=== PATIENT | female | born 1975 | race Caucasian/White ===

== ENCOUNTER → 2018-08-16 13:23 | Outpatient (CLI) | payer MEDICAID, SELFPAY ==
[2018-08-20 10:47] LABS: HPV Reflexed? NOT INDICATED
== END ==
PROVIDERS: Visit Provider Obstetrics & Gynecology
DX: Z12.4 Encounter for screening for malignant neoplasm of cervix (principal)
CPT/HCPCS: 88175; G0145

== ENCOUNTER 2023-07-11 12:06 | Emergency (ER) | payer MEDICAID, SELFPAY ==
[2023-07-11 12:07] VITALS: BP 196/113; PULSE 115; RESP 16; TEMP 36.3; O2SAT 99; BMI 40.6
[2023-07-11 13:25] LABS: Absolute Lymphocyte Count 2.53 X10^3/uL (0.83-4.51); Absolute Neutrophil Count 5.9 X10^3/uL (2.0-7.7); Basophil# 0.07 X10^3/uL; Basophil% 0.7 % (0-1); Eosinophil# 0.18 X10^3/uL; Eosinophils% 1.9 % (0-5); Hematocrit 33.7 % (37-47); Hemoglobin 10.6 g/dL (12.0-15.0); Lymphocyte # 2.53 X10^3/ul (0.83-4.51); Mean Corp Hgb Conc 31.5 g/dL (32-36); Mean Corpuscular Hgb 24.5 pg (27.0-32.0); Mean Corpuscular Volume 77.8 fL (81-99); Mean Platelet Vol. 9.2 fl (6.2-12.0); Monocyte# 0.69 X10^3/uL; Monocyte% 7.4 % (0-10); NRBC Flagged by Analyzer 0 % (0-5); Neutrophil # 5.88 X10^3/uL (2.7-7.7); Neutrophil % 62.7 % (47-70); Platelet Count 345 K/mm3 (150-450); RBC Distribution Width CV 14.9 % (11.6-14.6); RBC Distribution Width SD 41.3 fl (35.1-43.9); Red Blood Count 4.33 M/mm3 (4.2-5.4); White Blood Count 9.4 K/mm3 (4.4-11.0)
[2023-07-11 13:32] LABS: Internal QC Validated? YES +Cl - CLEAR BKGD; Pregnancy, Serum, hCG Quali. NEGATIVE Negative
[2023-07-11 13:41] LABS: ALB/GLOB Ratio 0.8 RATIO (0.9-2.4); AST(SGOT) 16 U/L (15-37); Alanine Aminotransfer ALT/SGPT 24 U/L (13-56); Albumin, Serum 3.6 g/dL (3.2-5.0); Alkaline Phosphatase 104 U/L (45-117); Anion Gap 6 (5-15); BUN 14 mg/dL (7-18); BUN/Creat Ratio 14.9 RATIO (10-20); Chloride 105 mmol/L (98-107); Creatinine, Serum 0.94 mg/dL (0.55-1.02); EST Glomerular Filtration Rate 68 mL/min (>60); Est Glom Filt Rate - Afr Amer 82 mL/min (>60); Estimated Creatinine Clearance 110.43 ml/min; Globulin 4.4 g/dL (2.2-4.2); Glucose 137 mg/dL (74-106); Potassium 3.9 mmol/L (3.5-5.1); Sodium Level 138 mmol/L (136-145)
[2023-07-11 15:17] LABS: Mucous, Urine 0 SEEN /hpf (<or=2+)
[2023-07-11 15:23] LABS: Color, Urine Yellow (Yellow); Glucose, Dipstick Normal (Normal); Ketone-Dipstick Negative (Negative); Leukocyte Esterase-Dipstick 500 /ul (Negative); Nitrite-Dipstick Negative (Negative); Occult Blood-Urine 10 /ul (Negative); Protein-Dipstick 30 mg/dl (Negative); Urine Bilirubin Dipstick Negative (Negative); Urine Clarity Sl. Cloudy (Clear); Urine Urobilinogen 1 mg/dl (Normal)
--- NOTE | 2023-07-11 15:23 | CT_ITS ---
EXAM: CT ABDOMEN AND PELVIS WITH INTRAVENOUS CONTRAST CLINICAL INDICATION: Abdominal pain, constipation TECHNIQUE: Helically acquired images were obtained of the abdomen and pelvis with intravenous contrast. This CT exam was performed using one or more of the following dose reduction techniques: automated exposure control, adjustment of the mA and/or kV according to patient size, and/or use of iterative reconstruction technique. CONTRAST: IV 100mL Isovue-370 RADIATION DOSE: CTDIvol = 15.29 mGy, DLP = 1274.12 mGy-cm COMPARISON: No relevant prior studies available. FINDINGS: LIMITATIONS: Limited by patient''s size which decreases resolution and causes artifact. LOWER THORAX: Unremarkable. Lung bases are clear. No cardiomegaly. No significant pericardial effusion. ABDOMEN: LIVER: Fatty liver with hepatomegaly. GALLBLADDER AND BILE DUCTS: Absent gallbladder. No intra- or extrahepatic biliary ductal dilation. PANCREAS: Unremarkable. No focal cystic or solid mass. SPLEEN: Unremarkable. Normal size without focal cystic or solid mass. ADRENALS: Unremarkable. No nodules. KIDNEYS AND URETERS: Unremarkable. Normal renal size and position. No hydronephrosis. STOMACH AND BOWEL: Evaluation of the GI tract is limited by absence of oral contrast. Cannot exclude stomach wall thickening. No dilated loops of bowel or evidence for obstruction. Cannot exclude segmental thickening of the munoz of the small or large bowel. Cannot exclude enteritis or colitis. Moderate diffuse fecal retention. PELVIS: APPENDIX: No evidence of acute appendicitis. BLADDER: Unremarkable. REPRODUCTIVE: Normal uterus. No mass. ABDOMEN and PELVIS: INTRAPERITONEAL SPACE: Unremarkable. No ascites or other fluid collection. No free air. BONES/JOINTS: Unremarkable. No suspicious lytic or blastic abnormality. SOFT TISSUES: Unremarkable. No discrete abdominal or pelvic wall hernia. VASCULATURE: Unremarkable. Abdominal aorta is non-dilated. LYMPH NODES: Unremarkable. No enlarged lymph nodes. CT/Abdomen/Pelvis W IV Cont ONLY IMPRESSION: 1. Limited as above. 2. No definite acute or significant abnormality seen. Electronically Signed: Dane Waddell MD at 16:31 EST ,
--- NOTE | 2023-07-11 15:23 | ED.VIS.GI ---
HPI HPI - GI History of Present Illness Chief Complaint: Abd Pain Informant: patient Narrative Narrative: Patient presents with constipation and abdominal pain. Patient was seen by her doctor here referred to make sure there was not a blockage or other acute issue. Patient states she has had lifelong problems with constipation and abdominal discomfort. She has significant reflux and is on 2 meds. She does note that she will oftentimes have a bowel movement near her menstrual cycle and then after that she has trouble going. Her last but good bowel movement and her menstrual cycle were both about 2 weeks ago. She is starting menopause and has irregularity of cycles. Only prior abdominal surgery is cholecystectomy. Patient states she has tried fibers and fluids. She has tried laxatives like Dulcolax but they never work for her. Her only current medication is MiraLAX. She states her stool is soft but it still does not seem to go enough. She just feels bloated and full. She has had EGDs and colonoscopies. She has seen 2 different rn first assist and is about to see a third. Her doctor talked to her about Linzess but would like a rn first assist to prescribe it. She has not taken anything other than MiraLAX in the last 2 weeks to try to get a bowel movement. Patient also states she has chronic hemorrhoids. She has has had some bleeding occasionally bright red and occasionally dark red recently. [facility] Medical History GERD (gastroesophageal reflux disease) Home Medications famotidine 20 mg tablet 20 mg PO DAILY 07/11/23 [History Last Taken Unknown] ondansetron 4 mg disintegrating tablet 4 mg PO Q8H PRN PRN Nausea #10 tabs 07/11/23 [Rx Last Taken Unknown] pantoprazole 40 mg tablet,delayed release 40 mg PO DAILY 07/11/23 [History Last Taken Unknown] Allergy/AdvReac Type Severity Reaction Status Date / Time vancomycin Allergy Intermediate Hives Verified 07/11/23 12:09 venom-honey bee Allergy Anaphylaxis Verified 02/24/15 18:10 [bee venom (honey bee)] Surgical History Hx of cholecystectomy Social History Smoking Status: Current every day smoker tobacco type: cigarettes ROS ROS ED ROS Narrative A complete review of systems was performed and is negative except as documented in the history of present illness. Some specific details below. Constitutional: No recent fevers or chills. EYE: No visual complaints or pain. ENT: No difficulty swallowing. No swelling. No pain. She does have chronic GERD but it is not a major issue at this time. CV: No chest pain or palpitations. Respiratory: No dyspnea. No hemoptysis. No difficulty taking breaths. GI: Please see history of present illness. : No frequency dysuria or hematuria. Musculoskeletal: No recent trauma. No pains. Skin: No rash. Nondiaphoretic. Neuro: No weakness or numbness. Endocrine: No polyuria or polydipsia. EXAM Physical Exam Narrative Exam Narrative: CONSTITUTIONAL: Patient is nontoxic in appearance. The patient looks comfortable. HEENT: No notable trauma. Mucous membranes moist. EYES: No conjunctival injection. No icterus or pallor. CARDIOVASCULAR: Regular rate. Regular rhythm. No notable murmur. No JVD. RESPIRATORY: No respiratory distress. Breathing is unlabored. No wheezes. No rhonchi. No rales. No pain with a deep breath. GASTROINTESTINAL: Not distended. Bowel sounds are normal to slightly increased. No tenderness. No guarding. No rebound. No palpable mass. No bruit. Her abdomen is actually quite benign. GENITOURINARY: No tenderness over the bladder. No CVA tenderness. MUSCULOSKELETAL: Atraumatic. No peripheral edema. No tenderness NEUROLOGICAL: Patient is alert and appropriate. No focal deficit noted. SKIN: No noted rashes. No diaphoresis. PSYCHIATRIC: Patient is calm. Mood is appropriate. Const Vital Signs: 07/11/23 12:07 Temperature 97.3 F L Temperature Source Temporal Pulse Rate 115 H Respiratory Rate 16 Blood Pressure 196/113 H Blood Pressure Mean 140 Pulse Ox 99 Oxygen Delivery Method Room Air MDM MDM MDM Narrative Medical decision making narrative: Patient CBC shows what appears to be chronic anemia from the indices. White count and platelets are normal. Patient's electrolytes show no marked abnormalities. Mild elevation of glucose at 137 that can be followed up. Patient's liver function test are overall normal. Patient's serum is negative. Patient's urinalysis shows multiple changes but also has a large number of squamous epithelial cells. She has no urinary symptoms. This will be sent for culture. My independent interpretation of her CT shows some increased stool but no acute obstruction. Similar reading by radiology. We will send the patient home with magnesium citrate. Although she is constipated she has been on MiraLAX but nothing to really stimulate initial bowel motion. She will follow-up with her physician who is also getting her into see a gastroenterology. Lab Data Attestation: I reviewed the patient's lab results. Labs: Laboratory Results - last 24 hr 07/11/23 07/11/23 13:05 15:10 WBC 9.4 RBC 4.33 Hgb 10.6 L Hct 33.7 L MCV 77.8 L MCH 24.5 L MCHC 31.5 L RDW Std Deviation 41.3 RDW Coeff of [place] 14.9 H Plt Count 345 MPV 9.2 Immature Gran % (Auto) 0.300 Neut % (Auto) 62.7 Lymph % (Auto) 27.0 [place] % (Auto) 7.4 Eos % (Auto) 1.9 Baso % (Auto) 0.7 Absolute Neuts (auto) 5.9 Absolute Lymphs (auto) 2.53 Nucleated RBC % 0 Sodium 138 Potassium 3.9 Chloride 105 Carbon Dioxide 27.0 Anion Gap 6 BUN 14 Creatinine 0.94 Estim Creat Clear Calc 110.43 Est GFR (MDRD) Af Amer 82 Est GFR (MDRD) Non-Af 68 BUN/Creatinine Ratio 14.9 Glucose 137 H Calcium 9.0 Total Bilirubin 0.40 AST 16 ALT 24 Alkaline Phosphatase 104 Total Protein 8.0 Albumin 3.6 Globulin 4.4 H Albumin/Globulin Ratio 0.8 L Serum , Qual NEGATIVE Urine Color Yellow Urine Clarity Sl. Cloudy Urine pH 7.0 Ur Specific Hematite 1.010 Urine Protein 30 H Urine Glucose (UA) Normal Urine Ketones Negative Urine Occult Blood 10 H Urine Nitrite Negative Urine Bilirubin Negative Urine Urobilinogen 1 H Ur Leukocyte Esterase 500 H Urine RBC 0-5 SEEN Urine WBC 10-25 SEEN Ur Squamous Epith Cells 10-25 SEEN Urine Bacteria 3+ Urine Mucus 0 SEEN Radiography Diagnostic Testing: Clinical Impression(s) from Imaging Studies Abdomen/Pelvis CT 07/11/23 15:23 IMPRESSION: 1. Limited as above. 2. No definite acute or significant abnormality seen. Electronically Signed: Dane Waddell MD at 16:31 EST , Discharge Plan Triage Chief Complaint: Abd Pain ED Provider: Rosales Thompson Dx/Rx/DC Orders Clinical Impression: Abdominal pain, Nausea, Constipation Instructions: Abdominal Pain, ED Constipation (Adult) Prescriptions: New ondansetron [ondansetron] 4 mg tablet,disintegrating 4 mg PO Q8H PRN PRN (Reason: Nausea) Qty: 10 0RF No Action famotidine 20 mg tablet 20 mg PO DAILY Patient Comments: TAKE 1 TABLET BY MOUTH EVERY DAY pantoprazole 40 mg tablet,delayed release (DR/EC) 40 mg PO DAILY Patient Comments: TAKE 1 TABLET BY MOUTH EVERY DAY Primary Care Provider: Theo Alexander Referrals: Theo Alexander MD [Primary Care Provider] - 3-5 Days Disposition Disposition: Home, Self Care
--- OUTSIDE RECORDS SUMMARY | 2023-07-11 15:29 | XMS RPT_ITS | CCD ---
Author Name Unknown Address [address] [place] [address] Organization [facility] Care Team Providers Care Network Support Technician Name Role Phone Hui Alexander MD Primary Care Provider [phone] HUI ALEXANDER Primary Care Unavailable HUI ALEXANDER Referring Unavailable HUI ALEXANDER Attending Unavailable HUI ALEXANDER Primary Care Unavailable HUI ALEXANDER Primary Care Unavailable HUI ALEXANDER Primary Care Unavailable HUI ALEXANDER Referring Unavailable HUI ALEXANDER Primary Care Unavailable HUI ALEXANDER Primary Care Unavailable HUI ALEXANDER Referring Unavailable Allergies Allergy Classification Reported Allergen(s) Allergy Type Date of Onset Reaction(s) Facility (20 sources) Vancomycin; Translations: [VANCOMYCIN] Drug Allergy 7 Other: See Comments [facility] Work Phone: (20 sources) Bees; Translations: [BEES] Allergy to substance 0 Anaphylaxis [facility] Work Phone: (20 sources) environmental [Other] Propensity to adverse reactions 0 Intolerance [facility] Work Phone: (1 source) Seasonal allergy Allergy to substance 0 Intolerance [facility] (1 source) OTHER; Translations: [OTHER] Propensity to adverse reactions (disorder) 0 [facility] Repository Medications Current Medications Medication Drug Class(es) Dates Sig (Normalized) Sig (Original) famotidine 20 mg oral tablet (20 sources) Histamine-2 Receptor Antagonist Start: 08-09-2022 End: 06-14-2023 take 1 tablet by mouth once daily famotidine (PEPCID) 20 mg tablet Indications: Functional dyspepsia Take 1 tablet by mouth once daily. 90 tablet 1 12/16/2022 06/14/2023 Active Completed/Discontinued Medications Medication Drug Class(es) Dates Sig (Normalized) Sig (Original) acetaminophen 500 mg oral tablet (1 source) Start: 05-27-2022 End: 05-27-2022 acetaminophen 1,000 mg tab(s) (TYLENOL) betamethasone 0.5 mg/ml / clotrimazole 10 mg/ml topical cream (6 sources) Azole Antifungal, Corticosteroid Start: 03-11-2022 End: 12-16-2022 clotrimazole-betam ethasone (LOTRISONE) cream Apply to affected area twice daily. 45 g 0 03/11/2022 12/16/2022 Discontinued (Other) Problems Active Problems Problem Classification Problem Date Documented Da te Episodic/Chronic Abdominal pain (1 source) Burning epigastric pain; Translations: [Epigastric pain] Episodic Deficiency and other anemia (1 source) Anemia; Translations: [Anemia, unspecified] 01-04-2023 Episodic Disorders of teeth and jaw (1 source) Jaw pain; Translations: [Jaw pain] 05-20-2023 Episodic Esophageal disorders (1 source) Gastroesophageal reflux disease without esophagitis; Translations: [Gastro-esophageal reflux disease without esophagitis] Chronic Influenza (1 source) Influenza-like illness; Translations: [Influenza due to unidentified influenza virus with other respiratory manifestations] Episodic Malaise and fatigue (1 source) Fatigue; Translations: [Other fatigue] 12-16-2022 Episodic Menstrual disorders (1 source) Missed period; Translations: [Irregular menstruation, unspecified] Chronic Nausea and vomiting (1 source) Nausea; Translations: [Nausea] Episodic Other and unspecified benign neoplasm (1 source) History of polyp of colon; Translations: [Personal history of colonic polyps] Episodic Other disorders of stomach and duodenum (2 sources) Nonulcer dyspepsia; Translations: [Functional dyspepsia] Episodic Other ear and sense organ disorders (1 source) Otalgia, right ear; Translations: [Otalgia, unspecified] 05-20-2023 Episodic Other gastrointestinal disorders (4 sources) Abdominal bloating; Translations: [Abdominal distension (gaseous)] Episodic Other gastrointestinal disorders (3 sources) Constipation; Translations: [Constipation, unspecified] Episodic Other gastrointestinal disorders (2 sources) Dysphagia; Translations: [Dysphagia, unspecified] Episodic Other gastrointestinal disorders (1 source) Chronic constipation; Translations: [Other constipation] 12-16-2022 Episodic Other skin disorders (1 source) Eruption; Translations: [Rash and other nonspecific skin eruption] Episodic Other upper respiratory infections (2 sources) Sore throat symptom; Translations: [Acute pharyngitis, unspecified] Episodic Residual codes; unclassified (3 sources) Obstructive sleep apnea syndrome; Translations: [Obstructive sleep apnea (adult) (pediatric)] 12-17-2022 Chronic Residual codes; unclassified (1 source) Obstructive sleep apnea (adult) (pediatric); Translations: [CARMENCITA (obstructive sleep apnea)] Onset: 3 Chronic Residual codes; unclassified (4 sources) Early satiety; Translations: [Early satiety] Episodic Residual codes; unclassified (2 sources) Family history of polyp of colon; Translations: [Family history of colonic polyps] Episodic Past or Other Problems Problem Classification Problem Date Documented Da te Episodic/Chronic Allergic reactions (20 sources) Allergy to bee venom; Translations: [Bee allergy status] Onset: 01-10-2018 01-10-2018 Episodic Deficiency and other anemia (1 source) Anemia, unspecified; Translations: [Anemia, unspecified type] Onset: 01-03-2023 Episodic Immunizations and screening for infectious disease (3 sources) Viral screening status; Translations: [Encounter for screening for other viral diseases] Onset: 12-23-2022 12-16-2022 Episodic Other connective tissue disease (20 sources) Plantar fascial fibromatosis; Translations: [Plantar fascial fibromatosis] Onset: 09-23-2009 09-23-2009 Episodic Other gastrointestinal disorders (1 source) Other constipation; Translations: [Chronic constipation] Onset: 12-23-2022 Episodic Other screening for suspected conditions (not mental disorders or infectious disease) (10 sources) Patient encounter status; Translations: [Encounter for screening mammogram for malignant neoplasm of breast] Onset: 12-23-2022 Episodic Results Test Name Value Interpretation Reference Range Facil ity Vital Signs Date Time Vital Sign Value Performing Clinician Lisandro beckham 05-20-2023 16:26-0500 Body temperature 97.39 [degF] Shari Sewell APRN.BUN ICER Work Phone: [facility] 05-20-2023 16:26-0500 Body weight 131.18 kg Shari Melodie SENIOR LINUX UNIX ENGINEER.B[employer] ICER Work Phone: [facility] 05-20-2023 16:26-0500 Diastolic blood pressure 86 mm[Hg] Shari Melodie SENIOR LINUX UNIX ENGINEER.B[employer] IC[employer] Work Phone: [facility] 05-20-2023 16:26-0500 Heart rate 96 /min Shari Melodie SENIOR LINUX UNIX ENGINEER.B[employer] ICER Work Phone: [facility] 05-20-2023 16:26-0500 Respiratory rate 18 /min Shari Melodie SENIOR LINUX UNIX ENGINEER.B[employer] ICER Work Phone: [facility] 05-20-2023 16:26-0500 SaO2% (BldA) [Mass fraction] 98 % Shari Barkerk SENIOR LINUX UNIX ENGINEER.B[employer] ICER Work Phone: [facility] 05-20-2023 16:26-0500 Systolic blood pressure 134 mm[Hg] Shari Melodie SENIOR LINUX UNIX ENGINEER.B[employer] ICER Work Phone: [facility] 12-16-2022 14:22-0400 Body height 175.3 cm Hui Alexander MD Work Phone: [facility] 12-16-2022 14:22-0400 Body weight 133.63 kg Hui Alexander MD Work Phone: [facility] 12-16-2022 14:22-0400 Diastolic blood pressure 74 mm[Hg] Hui Alexander MD Work Phone: [facility] 12-16-2022 14:22-0400 Heart rate 98 /min Hui Alexander MD Work Phone: [facility] 12-16-2022 14:22-0400 SaO2% (BldA) [Mass fraction] 97 % Hui Alexander MD Work Phone: [facility] 12-16-2022 14:22-0400 Systolic blood pressure 100 mm[Hg] Hui Alexander MD Work Phone: [facility] 05-27-2022 14:49-0500 Body temperature 100.6 [degF] Marcelino Tineo SENIOR LINUX UNIX ENGINEER.B[employer] ICER Work Phone: [facility] 05-27-2022 14:49-0500 Body weight 135.99 kg Marcelino Noman SENIOR LINUX UNIX ENGINEER.B[employer] ICER Work Phone: [facility] 05-27-2022 14:49-0500 Diastolic blood pressure 84 mm[Hg] Marcelino Noman SENIOR LINUX UNIX ENGINEER.B[employer] ICER Work Phone: [facility] 05-27-2022 14:49-0500 Heart rate 114 /min Marcelino Noman SENIOR LINUX UNIX ENGINEER.BUN ICER Work Phone: [facility] 05-27-2022 14:49-0500 Respiratory rate 18 /min Marcelino Noman SENIOR LINUX UNIX ENGINEER.B[employer] ICER Work Phone: [facility] 05-27-2022 14:49-0500 SaO2% (BldA) [Mass fraction] 98 % Marcelino Noman SENIOR LINUX UNIX ENGINEER.BUN ICER Work Phone: [facility] 05-27-2022 14:49-0500 Systolic blood pressure 138 mm[Hg] Marcelino Noman SENIOR LINUX UNIX ENGINEER.B[employer] ICER Work Phone: [facility] 03-29-2022 18:59-0400 Body temperature 98.29 [degF] Eduarda Praisler-Wood SENIOR LINUX UNIX ENGINEER.BUN ICER Work Phone: [facility] 03-29-2022 18:59-0400 Body weight 135.17 kg Eduarda Praisler-Wood SENIOR LINUX UNIX ENGINEER.BUN ICER Work Phone: [facility] 03-29-2022 18:59-0400 Diastolic blood pressure 90 mm[Hg] Eduarda Praisler-Wood SENIOR LINUX UNIX ENGINEER.BUN ICER Work Phone: [facility] 03-29-2022 18:59-0400 Heart rate 110 /min Eduarda Praisler-Wood SENIOR LINUX UNIX ENGINEER.BUN ICER Work Phone: [facility] 03-29-2022 18:59-0400 Respiratory rate 18 /min Eduarda Praisler-Wood SENIOR LINUX UNIX ENGINEER.BUN ICER Work Phone: [facility] 03-29-2022 18:59-0400 SaO2% (BldA) [Mass fraction] 97 % Eduarda Praisler-Wood SENIOR LINUX UNIX ENGINEER.BUN ICER Work Phone: [facility] 03-29-2022 18:59-0400 Systolic blood pressure 138 mm[Hg] Eduarda Praisler-Wood SENIOR LINUX UNIX ENGINEER.BUN ICER Work Phone: [facility] 03-11-2022 13:34-0400 Body temperature 98.2 [degF] Gilberto Rudolph SENIOR LINUX UNIX ENGINEER.BUN ICER Work Phone: [facility] 03-11-2022 13:34-0400 Body weight 135.26 kg Gilbreto Rudolph SENIOR LINUX UNIX ENGINEER.BUN ICER Work Phone: [facility] 03-11-2022 13:34-0400 Diastolic blood pressure 80 mm[Hg] Gilberto Rudolph SENIOR LINUX UNIX ENGINEER.BUN ICER Work Phone: [facility] 03-11-2022 13:34-0400 Heart rate 106 /min Gilberto Rudolph SENIOR LINUX UNIX ENGINEER.BUN ICER Work Phone: [facility] 03-11-2022 13:34-0400 Respiratory rate 16 /min Gilberto Rudolph SENIOR LINUX UNIX ENGINEER.BUN ICER Work Phone: [facility] 03-11-2022 13:34-0400 SaO2% (BldA) [Mass fraction] 96 % Gilberto Rudolph SENIOR LINUX UNIX ENGINEER.BUN ICER Work Phone: [facility] 03-11-2022 13:34-0400 Systolic blood pressure 144 mm[Hg] Gilberto Rudolph SENIOR LINUX UNIX ENGINEER.BUN ICER Work Phone: [facility] 01-27-2022 09:21-0400 Body height 175.3 cm Keri Kuhn MD Work Phone: [facility] 01-27-2022 09:21-0400 Body weight 135.17 kg Keri Kuhn MD Work Phone: [facility] 01-27-2022 09:21-0400 Diastolic blood pressure 84 mm[Hg] Keri Kuhn MD Work Phone: [facility] 01-27-2022 09:21-0400 Systolic blood pressure 138 mm[Hg] Keri Kuhn MD Work Phone: [facility] 12-30-2021 09:15-0400 Diastolic blood pressure 56 mm[Hg] Jordan Odom MD Work Phone: [facility] 12-30-2021 09:15-0400 SaO2% (BldA) [Mass fraction] 93 % Jordan Odom MD Work Phone: [facility] 12-30-2021 09:15-0400 Systolic blood pressure 109 mm[Hg] Jordan Odom MD Work Phone: [facility] 12-30-2021 08:44-0400 Body temperature 96.8 [degF] Jordan Odom MD Work Phone: [facility] 12-30-2021 07:08-0400 Body height 177.8 cm Jordan Odom MD Work Phone: [facility] 12-30-2021 07:08-0400 Body weight 132.9 kg Jordan Odom MD Work Phone: [facility] 12-30-2021 07:08-0400 Heart rate 94 /min Jordan Odom MD Work Phone: [facility] 12-30-2021 07:08-0400 Respiratory rate 18 /min Jordan Odom MD Work Phone: [facility] 08-31-2021 13:09-0400 Body height 175 cm Francesca Hurst SENIOR LINUX UNIX ENGINEER.BUN ICER Work Phone: [facility] 08-31-2021 13:09-0400 Body weight 132.9 kg Francesca Hurst SENIOR LINUX UNIX ENGINEER.BUN ICER Work Phone: [facility] 08-31-2021 13:09-0400 Diastolic blood pressure 78 mm[Hg] Francesca Hurst SENIOR LINUX UNIX ENGINEER.BUN ICER Work Phone: [facility] 08-31-2021 13:09-0400 Heart rate 97 /min Francesca Hurst SENIOR LINUX UNIX ENGINEER.BUN ICER Work Phone: [facility] 08-31-2021 13:09-0400 SaO2% (BldA) [Mass fraction] 97 % Francesca Hurst SENIOR LINUX UNIX ENGINEER.BUN ICER Work Phone: [facility] 08-31-2021 13:09-0400 Systolic blood pressure 124 mm[Hg] Francesca Hurst SENIOR LINUX UNIX ENGINEER.BUN ICER Work Phone: [facility] Encounters Encounter Date Encounter Type Care Provider Facility Start: 05-20-2023 End: 05-20-2023 ambulatory HUI ALEXANDER Facility:[facility] Start: 05-20-2023 End: 05-20-2023 Patient encounter procedure Shari Sewell SENIOR LINUX UNIX ENGINEER.BUN ICER Work Phone: [facility] Procedures Date Procedure Procedure Detail Performing Clinician Start: 05-20-2023 STREP A MOLECULAR (POC) Shari Sewell SENIOR LINUX UNIX ENGINEER. BUN ICER Work Phone: Start: 12-23-2022 Lipid 1996 panel - Serum or Plasma Nick Carpenter Jr., MD Work Phone: Start: 05-27-2022 COVID WITH FLUA+B, ROUTINE Marcelino Tineo SENIOR LINUX UNIX ENGINEER.B[employer] ICER Work Phone: Start: 03-29-2022 STREP A MOLECULAR (POC) Eduarda barrow SENIOR LINUX UNIX ENGINEER.BUN ICER Work Phone: Start: 03-11-2022 RIRI SCREENING W RUFUS Kuhn MD Work Phone: Start: 03-11-2022 Mammography Gilberto Rudolph SENIOR LINUX UNIX ENGINEER.BUN ICER Work Phone: Start: 12-30-2021 Colonoscopy flx dx w/collj spec when pfrmd Francesca Hurst SENIOR LINUX UNIX ENGINEER.BUN ICER Work Phone: Start: 12-30-2021 Esophagogastroduodenoscopy transoral diagnostic Francesca Hurst SENIOR LINUX UNIX ENGINEER.BUN ICER Work Phone: Start: 12-30-2021 Colonoscopy Gilberto Rudolph SENIOR LINUX UNIX ENGINEER.BUN ICER Work Phone: Start: 04-03-2019 Adult depression screening assessment Francesca Hurst APRN.CNP Work Phone: Start: 01-30-2018 Mammography Francesca Hurst APRN.CNP Work Phone: Plan of Treatment Date Care Activity Detail Author Start: 12-24-2027 Lipid 1996 panel - S tash or Plasma Lipid Screening [facility] Start: 12-24-2027 Lipid panel Lipid Screening [facility] Start: 12-24-2027 LIPID SCREEN LIPID SCREEN [facility] Start: 01-27-2027 HPV TESTING HPV TESTING [facility] Start: 01-27-2027 PAP TESTING PAP TESTING [facility] Start: 01-27-2027 Screening for malign ant neoplasm of cervix [facility] Start: 12-30-2026 Colonoscopy COLONOSCOPY [facility] Start: 12-30-2026 COLORECTAL CANCER SCREENING COLORECTAL CANCER SCREENING [facility] Start: 12-30-2026 Screening for malign ant neoplasm of colon [facility] Start: 12-23-2025 DIABETES SCREEN DIABETES SCREEN [facility] Start: 12-23-2025 Diabetes Screening Diabetes Screenin g [facility] Start: 08-31-2024 DIABETES SCREEN DIABETES SCREEN [facility] Start: 01-06-2024 FECAL OCCULT BLOOD FECAL OCCULT BLOO D [facility] Start: 01-06-2024 Screening for malign ant neoplasm of colon Fecal Occult Blood [facility] Start: 12-17-2023 COVID-19 VACCINE (#1) COVID-19 VACCI NE (#1) [facility] Immunizations Immunization Date Immunization Notes Care Provider Fa [facility] 04-07-2020 Influenza, injectabl e, Madin Jazmín Canine Kidney, preservative free, quadrivalent Hui Alexander MD Work Phone: [facility] 04-07-2020 influenza virus vaccine, unspecified formulation Hui Carpenter Jr., MD Work Phone: [facility] 05-19-2009 novel [id number], all formulations Francesca Hurst APRN.CNP Work Phone: [facility] Work Phone: Payers Date Payer Category Payer Medicaid [id number] 2012 Medicaid [id number] 2012 Medicaid [id number] 2012 Medicaid [id number] Social History Date Type Detail Facility Start: 01-10-2018 End: 03-11-2022 Tobacco smoking status NHIS Ex-smoker [facility] End: 06-12-2017 History of tobacco use Current smoker [facility] End: 06-12-2017 History of tobacco use Cigarette Smoker [facility] Start: 01-10-2018 End: 12-14-2022 Cigarettes smoked current (pack per day) - Reported 0.5 [facility] Start: 01-10-2018 End: 03-11-2022 Tobacco use and exposure Smokeless tobacco non-user [facility] Start: 08-31-2021 End: 05-20-2023 Alcohol intake Current non-drinker of alcohol (finding) [facility] Start: 1975 Sex Assigned At Not on file C [facility] Start: 12-20-2021 End: 03-11-2022 Exposure to SARS-CoV-2 (event) Not sure [facility] Start: 12-14-2022 End: 12-16-2022 Social connection and isolation panel [facility] Do you belong to any clubs or organizations such as nondenominational groups, unions, fraternal or athletic groups, or school groups? Yes [facility] Are you now , , , , never or living with a partner? Living with partner [facility] How often to you hav e a drink containing alcohol? Never [facility] How many standard dr inks containing alcohol do you have on a typical day? Patient does not drink [facility] How hard is it for y ou to pay for the very basics like food, housing, medical care, and heating Somewhat hard [facility] Do you feel stress - tense, restless, nervous, or anxious, or unable to sleep at night because your mind is troubled all the time - these days [OSQ] To some extent [facility] (I/We) worried cordell er (my/our) food would run out before (I/we) got money to buy more. Sometimes true [facility] At any time in the p ast 12 months, were you homeless or living in long term [including now]? No [facility] Clinical Notes 08-31-2021 to 05-20-2023 Shari Sewell APRN.BUN ICER - 05/20/2023 4:36 PM ESTTelephone Encounter - Mariza Bautista - 02/18/2023 1:50 PM EDTTelephone Encounter - Lyn Sigala - 02/02/2023 2:57 PM EDTPatient Instructions Note Date & Type Note Facility 05-20-2023 Note HNO ID: [id number] Author: Shari Sewell APRN.BUN ICER Service: ? Author Type: Nurse Practitioner Type: Progress Notes Filed: 05/20/2023 4:59 PM Note Text: Subjective The history is provided by the patient and the spouse. No speech and language assistant was used. HPI Gilberto Gooden is a 47 year old female who presents today for CC of sore throat, jaw pain and right ear pain for 3 days and gradually getting worse. She has not used any medications. Denies any cough, congestion, sore throat, fever, chills body aches. BP 134/86 Pulse 96 Temp 36.3 ?C (97.4 ?F) Resp 18 Wt 131.2 kg (289 lb 3.2 oz) LMP 01/13/2022 SpO2 98% BMI 42.71 kg/m? Social History Tobacco Use Smoking status: Former Packs/day: 0.50 Years: 8.00 Additional pack years: 0.00 Total pack years: 4.00 Types: Cigarettes Quit date: 06/12/2017 Years since quittin.9 Smokeless tobacco: Never Vaping Use Vaping Use: Never used Substance Use Topics Alcohol use: No Drug use: No PAST MEDICAL HISTORY Diagnosis Date GERD (gastroesophageal reflux disease) LLL pneumonia 03/14/2019 Meningitis 2012 Tobacco use disorder I have confirmed and edited as necessary, the [facility] Review of Systems Constitutional: Negative for chills and fever. HENT: Positive for ear pain and sore throat. Negative for congestion and sinus pain. Respiratory: Negative for cough, sputum production, shortness of breath and wheezing. Cardiovascular: Negative for chest pain. Musculoskeletal: Negative for myalgias. Neurological: Negative for headaches. Objective Physical Exam Vitals and nursing note reviewed. HENT: Head: Normocephalic and atraumatic. Right Ear: Tympanic membrane, ear canal and external ear normal. Left Ear: Tympanic membrane, ear canal and external ear normal. Ears: Comments: Canals bilaterally are very small, there is a small amount of cerumen lying in bottom of canal. Very difficult to see TM Nose: No mucosal edema, congestion or rhinorrhea. Right Sinus: No maxillary sinus tenderness or frontal sinus tenderness. Left Sinus: No maxillary sinus tenderness or frontal sinus tenderness. Mouth/Throat: Pharynx: Uvula midline. No oropharyngeal exudate or posterior oropharyngeal erythema. Cardiovascular: Rate and Rhythm: Normal rate and regular rhythm. Heart sounds: Normal heart sounds. Pulmonary: Effort: Pulmonary effort is normal. Breath sounds: Normal breath sounds. Lymphadenopathy: Head: Right side of head: No submental, submandibular or tonsillar adenopathy. Left side of head: No submental, submandibular or tonsillar adenopathy. Cervical: No cervical adenopathy. Skin: General: Skin is warm and dry. Neurological: Mental Status: She is alert. Psychiatric: Mood and Affect: Affect normal. ASSESSMENT/PLAN: 1. Sore throat - ICD9: 462, ICD10: J02.9 (primary diagnosis) - suspect referred pain - Group A strep molecular testing negative - Discussed supportive care treatment with fluids, rest and analgesia. - The patient may also use warm salt water gargles, throat lozenges and/or OTC throat spray as needed. - The patient should follow up in one week if symptoms persist or worsen - Call back if drooling, increased temperature, symptoms of dehydration and/or still sick in one week - STREP A MOLECULAR (POC) 2. Right ear pain - ICD9: 388.70, ICD10: H92.01 Possible otitis externa Ofloxacin drops Follow up Tuesday/Tuesday with ENT - CONSULT TO ENT 3. Jaw pain - ICD9: 784.92, ICD10: R68.84 No signs of TMJ, dental pain, salivary enlargement Possible referred pain Follow up with dentist, ENT for further evaluation and treatment. - CONSULT TO ENT Diagnosis and treatment plan were discussed and questions were answered to the patient's satisfaction. Pt acknowledged understanding of concepts and follow up plan. Specific signs and symptoms that would indicate the need for higher level of care were discussed in detail warranting prompt ER evaluation. Shari Sewell APRN.[facility] 05-20-2023 History of Presen t illness Narrative Subjective The history is provided by the patient and the spouse. No speech and language assistant was used. HPI Gilberto Gooden is a 47 year old female who presents today for CC of sore throat, jaw pain and right ear pain for 3 days and gradually getting worse. She has not used any medications. Denies any cough, congestion, sore throat, fever, chills body aches. BP 134/86 Pulse 96 Temp 36.3 C (97.4 F) Resp 18 Wt 131.2 kg (289 lb 3.2 oz) LMP 01/13/2022 SpO2 98% BMI 42.71 kg/m Social History Tobacco Use Smoking status: Former Packs/day: 0.50 Years: 8.00 Additional pack years: 0.00 Total pack years: 4.00 Types: Cigarettes Quit date: 06/12/2017 Years since quittin.9 Smokeless tobacco: Never Vaping Use Vaping Use: Never used Substance Use Topics Alcohol use: No Drug use: No PAST MEDICAL HISTORY Diagnosis Date GERD (gastroesophageal reflux disease) LLL pneumonia 03/14/2019 Meningitis 2012 Tobacco use disorder I have confirmed and edited as necessary, the [facility] Review of Systems Constitutional: Negative for chills and fever. HENT: Positive for ear pain and sore throat. Negative for congestion and sinus pain. Respiratory: Negative for cough, sputum production, shortness of breath and wheezing. Cardiovascular: Negative for chest pain. Musculoskeletal: Negative for myalgias. Neurological: Negative for headaches. Objective Physical Exam Vitals and nursing note reviewed. HENT: Head: Normocephalic and atraumatic. Right Ear: Tympanic membrane, ear canal and external ear normal. Left Ear: Tympanic membrane, ear canal and external ear normal. Ears: Comments: Canals bilaterally are very small, there is a small amount of cerumen lying in bottom of canal. Very difficult to see TM Nose: No mucosal edema, congestion or rhinorrhea. Right Sinus: No maxillary sinus tenderness or frontal sinus tenderness. Left Sinus: No maxillary sinus tenderness or frontal sinus tenderness. Mouth/Throat: Pharynx: Uvula midline. No oropharyngeal exudate or posterior oropharyngeal erythema. Cardiovascular: Rate and Rhythm: Normal rate and regular rhythm. Heart sounds: Normal heart sounds. Pulmonary: Effort: Pulmonary effort is normal. Breath sounds: Normal breath sounds. Lymphadenopathy: Head: Right side of head: No submental, submandibular or tonsillar adenopathy. Left side of head: No submental, submandibular or tonsillar adenopathy. Cervical: No cervical adenopathy. Skin: General: Skin is warm and dry. Neurological: Mental Status: She is alert. Psychiatric: Mood and Affect: Affect normal. ASSESSMENT/PLAN: 1. Sore throat - ICD9: 462, ICD10: J02.9 (primary diagnosis) - suspect referred pain - Group A strep molecular testing negative - Discussed supportive care treatment with fluids, rest and analgesia. - The patient may also use warm salt water gargles, throat lozenges and/or OTC throat spray as needed. - The patient should follow up in one week if symptoms persist or worsen - Call back if drooling, increased temperature, symptoms of dehydration and/or still sick in one week - STREP A MOLECULAR (POC) 2. Right ear pain - ICD9: 388.70, ICD10: H92.01 Possible otitis externa Ofloxacin drops Follow up Tuesday/Tuesday with ENT - CONSULT TO ENT 3. Jaw pain - ICD9: 784.92, ICD10: R68.84 No signs of TMJ, dental pain, salivary enlargement Possible referred pain Follow up with dentist, ENT for further evaluation and treatment. - CONSULT TO ENT Diagnosis and treatment plan were discussed and questions were answered to the patient's satisfaction. Pt acknowledged understanding of concepts and follow up plan. Specific signs and symptoms that would indicate the need for higher level of care were discussed in detail warranting prompt ER evaluation. Shari Sewell APRN.CELESTINA documented in this encounter [facility] 04-20-2023 Note Patient Outreach (IN TMMN) GILBERTO GOODEN ([id number]) 1975 F Date Time Provider Department 04/20/23 HUI ALEXANDER During your visit today, we recorded the following information about you: Allergies As of Date: 04/20/2023 Noted Allergy Reaction BEES 09/23/2009 10 - Anaphylaxis environmental [Other] 09/23/2009 5 - Intolerance VANCOMYCIN 06/14/2016 14 - Other: See Comments Comments: Hot and itchy Date Reviewed: 12/16/2022 Reviewed by: Kaylen Holland - Fully Assessed Visit Diagnosis:Encounter for screening mammogram for breast cancer [Z12.31] Order(s):RIRI SCREENING W RUFUS [[id number]] Order #: [id number] FUTURE Prescriptions as of 04/25/2023 - CPAP Initiate Auto PAP @ 5-20 cm of water with humidification. Mask (per patient preference) optional chin strap (if indicated) , filters, tubing, humidifier and lifetime supplies. - ferrous sulfate 325 mg (65 mg iron) tablet Take 1 tablet by mouth twice daily with meals. - famotidine (PEPCID) 20 mg tablet Take 1 tablet by mouth once daily. - pantoprazole DR (PROTONIX) 40 mg tablet Take 1 tablet by mouth once daily. - EPINEPHrine (EPIPEN) 0.3 mg/0.3 mL auto-injector Use as directed - polyethylene glycol 3350 (MIRALAX) 17 gram/dose powder Take 17 g by mouth once daily. Dissolve dose in 4 - 8 ounces of liquid and take as directed. 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 Left the office number for the patient to call to reschedule. documented in this encounter [facility] 02-02-2023 Miscellaneous Notes Spoke with patient and was not wanting to do erickson and needed to decide what she wanted to do. Phoned Suze @ [place], [facility] detailed message. Phoned pt, notified of need for PAP titration study. She verbalized understanding. Schedulers please assist pt with scheduling titration study. Compa Kwan LPN Ok to do. placed Adelita Vizcaino- asking for titration study results. Reports insurance states patient needs a titration study. Please advise Suze: [phone], extension [phone] documented in this encounter [facility] 01-27-2023 Note HNO ID: [id number] Author: Hui Alexander MD Service: ? Author Type: Physician Type: Progress Notes Filed: 01/27/2023 2:43 PM Note Text: See note below. Patient encourage to have sleep study given their bmi, snoring and fatigue to rule out sleep apnea. [facility] 01-27-2023 Miscellaneous Notes Fax sent as requested. It was already in the note, however I added an addendum to call attention to it. Can reprint visit. Lance @ [facility] calling to request addendum to 12/16/22 OV notes to document discussion of need for Sleep Study. Please fax to [place] # [phone]. Sunita Golden RN documented in this encounter [facility] 01-19-2023 Miscellaneous Notes Patient informed and verbalized understanding. Order faxed to [facility]. Sending to schedulers to assist with sleep med consult. Patient advised someone would be contacting her. Kaylen Holland Sleep study confirms sleep apnea. Recommend treating with cpap and seeing sleep med. documented in this encounter [facility] 01-11-2023 Note HNO ID: [id number] Author: Sandra Anderson Service: ? Author Type: ? Type: Progress Notes Filed: 01/11/2023 1:01 PM Note Text: Study returned in working order with all questionnaires. [facility] 01-11-2023 History of Presen t illness Narrative Study returned in working order with all questionnaires. January 05, 2023 Standing PSG Orders signed in the last 90 days None Future PSG Orders signed in the last 90 days Ordered Auth. provider HOME SLEEP APNEA TEST (HSAT) [[id number]] 12/17/22 Hui Alexander MD Assoc. diagnoses: CARMENCITA (obstructive sleep apnea) [G47.33] Q: Indications: A: Obstructive sleep apnea Q: STOP-BANG conditions - Select All That Apply: A: BMI > 35 kg/m2 A2: SNORING that is loud or disruptive A3: TIREDNESS, fatigue or sleepiness during the day Q: Current use of supplemental oxygen during sleep period?: A: No All Prior Sleep Studies (past 365 days) Some values may be hidden. Unless noted otherwise, only the newest values recorded on each date are displayed. Sleep Studies HOME SLEEP APNEA TEST (HSAT) Future Expected: Expires: 12/17/23 BMI Readings from Last 2 Encounters: 12/16/22 : 43.50 kg/m 05/27/22 : 44.27 kg/m PAST MEDICAL HISTORY Diagnosis Date GERD (gastroesophageal reflux disease) LLL pneumonia 03/14/2019 Meningitis 2012 Tobacco use disorder The medical record was reviewed to determine if the proposed sleep study conforms to the AASM Practice Parameters for the Indications for Polysomnography and Related Procedures, or if the sleep study is indicated for other reasons. Indications for study: CARMENCITA suspected with comorbid medical or sleep disorders: Morbid obesity (BMI>40 kg/m2) Sleep study to be performed: Home Sleep Apnea Test (HSAT) Special instructions: None-follow laboratory protocol Emily Janene - Sleep Medicine Staff Note: I have read the above protocol, edited as needed, and agree to the plan. Lei Eugene III, PhD 1:50 PM, 01/05/2023 PT Delivery delayed, pt aware and will return by Tuesday [facility]# [id number] , date shipped out 01/07/23 Tracking mailout: [phone] [id number] Tracking return: [phone] [id number] January 01, 2023 An order has been received for Home Sleep Apnea Test (HSAT) from Hui Valencia MD , a B[facility] Staff. Visit prep complete. Comments :No The sleep study is scheduled for 02/01. Insurance: Payor: [facility] MEDICAID / Plan: [facility] MEDICAID / Product Type: Medicaid / Payer/Plan Subscr Sex Relation Sub. Ins. ID Effective Group Num 1. GILBERTO LAND 1975 Female Self [id number] 07/07/22 [facility] [address] Nae Juares documented in this encounter [facility] 01-05-2023 Note HNO ID: [id number] Author: Lei Eugene III, PhD Service: ? Author Type: Physician Type: Progress Notes Filed: 01/11/2023 1:01 PM Note Text: January 05, 2023 Standing PSG Orders signed in the last 90 days None Future PSG Orders signed in the last 90 days Ordered Auth. provider HOME SLEEP APNEA TEST (HSAT) [[id number]] 12/17/22 Hui Alexander MD Assoc. diagnoses: CARMENCITA (obstructive sleep apnea) [G47.33] Q: Indications: A: Obstructive sleep apnea Q: STOP-BANG conditions - Select All That Apply: A: BMI > 35 kg/m2 A2: SNORING that is loud or disruptive A3: TIREDNESS, fatigue or sleepiness during the day Q: Current use of supplemental oxygen during sleep period?: A: No All Prior Sleep Studies (past 365 days) Some values may be hidden. Unless noted otherwise, only the newest values recorded on each date are displayed. Sleep Studies HOME SLEEP APNEA TEST (HSAT) Future Expected: Expires: 12/17/23 BMI Readings from Last 2 Encounters: 12/16/22 : 43.50 kg/m? 05/27/22 : 44.27 kg/m? PAST MEDICAL HISTORY Diagnosis Date GERD (gastroesophageal reflux disease) LLL pneumonia 03/14/2019 Meningitis 2012 Tobacco use disorder The medical record was reviewed to determine if the proposed sleep study conforms to the AASM Practice Parameters for the Indications for Polysomnography and Related Procedures, or if the sleep study is indicated for other reasons. Indications for study: CARMENCITA suspected with comorbid medical or sleep disorders: Morbid obesity (BMI>40 kg/m2) Sleep study to be performed: Home Sleep Apnea Test (HSAT) Special instructions: None-follow laboratory protocol Emily Watters - Sleep Medicine Staff Note: I have read the above protocol, edited as needed, and agree to the plan. Lei Eugene III, PhD 1:50 PM, 01/05/2023 [facility] 01-05-2023 Note HNO ID: [id number] Author: Omar Du Service: ? Author Type: ? Type: Progress Notes Filed: 01/11/2023 1:01 PM Note Text: PT Delivery delayed, pt aware and will return by Tuesday [facility]# [id number] , date shipped out 01/07/23 Tracking mailout: [phone] Tracking return: [id number] [facility] 01-04-2023 Miscellaneous Notes Pt notified. She verbalized understanding. Pt would like rx to go to [facility], not [facility], new rx pending. Compa Kwan LPN The only reason we usually do iron infusions is if oral iron fails or someone is having severe anemia that is not quite at the level of needing a transfusion which we are no where near. I would also have to send her to a trimmer hand who would not see her unless fails oral iron. Patient notified of results and provider's instructions. Patient verbalizes understanding. Patient states that she will helpfully have a ifobt stool today. Patient reports that she had her period 2 weeks ago. Patient states that she does have heavy periods. Patient states that she has been feeling terrible with fatigue and brain fog. Patient states that she does not think iron pills will help as fast, asking about iron infusions. Gela Chambers RN Called and left a voicemail for the Patient to call back and ask for a nurse to receive the providers message. Sheridan Paredes, RN Liver is normal. Iron shows anemia. Add iron once a day. I need her to do the ifobt soon. How are her periods? Recheck cbc and iron in one month. documented in this encounter [facility] 01-01-2023 Note HNO ID: [id number] Author: Nae Juares Service: ? Author Type: ? Type: Progress Notes Filed: 01/11/2023 1:01 PM Note Text: January 01, 2023 An order has been received for Home Sleep Apnea Test (HSAT) from Hui Valencia MD , a [facility] Staff. Visit prep complete. Comments :No The sleep study is scheduled for 02/01. Insurance: Payor: [facility] MEDICAID / [facility] / Product Type: Medicaid / Payer/Plan Subscr Sex Relation Sub. Ins. ID Effective Group Num [facility]. [facility] [place] GILBERTO GOODEN 1975 Female Self [id number] 07/07/22 [facility] [address] Nae Juares [facility] 12-21-2022 Miscellaneous Notes Rescheduled with pt documented in this encounter [facility] 12-17-2022 Miscellaneous Notes Go ahead an set up. Ordered. Patient returned call and went over notes below from Dr Alexander. Patient said she is willing to do sleep study. She said thought Dr said home sleep study may be covered. Left message for patient to call office. Let her know we got talking about weight loss. I forgot to ask her. Is she willing to get checked for sleep apnea? Let me know. documented in this encounter [facility] 12-16-2022 Note HNO ID: [id number] Author: Hui Alexander MD Service: ? Author Type: Physician Type: Progress Notes Filed: 12/16/2022 5:53 PM Note Text: Patient presents with: Follow Up HPI: Patient presents today for office visit for follow up with multiple concerns. Last seen in December 2020. Needs refill on her Epi pen. Severe bee allergy. Has seen Gastro previously. Hx of severe constipation and hemorrhoids. Taking Protonix and Pepcid for severe GERD. Symptoms controlled. If takes miralax it works. Discussed taking it daily. Colonoscopy and upper EGD done 12/30/21. Biopsy results from colonoscopy and EGD - unremarkable - The polyps in the sigmoid colon are benign and some change was seen in the esophagus from GERD. Call from 09/29/22 where she was having severe rectal bleeding due to hemorrhoid. Hadn't had BM in over a week. Has nausea with episodes. Denies vomiting. Since is having more frequent BM's but, not normal Taking miralax OTC and increased her water intake. Trying to work on diet but finds it hard due to expense of healthier food options. Only taking two to three times a wek. Would like to discuss weight management. No energy. Is a snorer. Worse with weight gain. MEDICATIONS: Current Outpatient Medications Medication Sig famotidine (PEPCID) 20 mg tablet TAKE 1 TABLET BY MOUTH EVERY DAY pantoprazole DR (PROTONIX) 40 mg tablet TAKE 1 TABLET BY MOUTH EVERY DAY EPINEPHrine (EPIPEN) 0.3 mg/0.3 mL auto-injector Use as directed clotrimazole-betamethasone (LOTRISONE) cream Apply to affected area twice daily. (Patient not taking: Reported on 05/27/2022) No current facility-administered medications for this visit. ALLERGIES: ALLERGIES Allergen Reactions Bees Anaphylaxis Environmental [Othe* Intolerance Vancomycin Other: See Comments Hot and itchy PAST MEDICAL HISTORY Diagnosis Date GERD (gastroesophageal reflux disease) LLL pneumonia 03/14/2019 Meningitis 2012 Tobacco use disorder PAST SURGICAL HISTORY Procedure Laterality Date CHOLECYSTECTOMY 11/25/2007 CHOLECYSTECTOMY HX COLONOSCOPY SCREENING 12/30/2021 repeat in 5 years EGD 12/30/2021 PAST SURGICAL HISTORY OF 02/2009 Essure procedure FAMILY HISTORY Problem Relation Age of Onset Colon Polyps Mother multiple polyps other (GI-non cancerous polyps and diverticulosis) Mother other (diverticulosis) Mother Liver Cancer Father other (other) Maternal Grandmother Colon Polyps Maternal Grandmother Heart Maternal Grandmother COPD Maternal Grandmother Heart Maternal Grandfather Heart Paternal Grandmother Breast Cancer Paternal Grandmother Heart Paternal Grandfather Breast Cancer Maternal Aunt Social History Tobacco Use Smoking status: Former Packs/day: 0.50 Years: 8.00 Total pack years: 4.00 Types: Cigarettes Quit date: 06/12/2017 Years since quittin.5 Smokeless tobacco: Never Vaping Use Vaping Use: Never used Substance Use Topics Alcohol use: No Drug use: No Reviewed current medications, allergies, past medical history, surgical history, family history and social history today. REVIEW OF SYSTEMS All other reviewed and negative other than HPI. HEALTH MAINTENANCE: Reviewed health maintenance issues today and recommended the following in detail. HEPATITIS B(1 of 3 - 3-dose series) wad done. COVID-19 VACCINE(1) Never done HEPATITIS C SCREENING Never done HIV SCREENING Never done DTAP,TDAP,TD(1 - Tdap) Never done DEPRESSION ASSESSMENT Never done LIPID SCREEN due on 2022 MAMMOGRAM due on 03/11/2023 VITALS: BP 100/74 Pulse 98 Ht 175.3 cm (5' 9 ) Wt 133.6 kg (294 lb 9.6 oz) LMP 01/13/2022 SpO2 97% BMI 43.50 kg/m? Last 4 Encounter Wt Readings: Date: Wt: 05/27/2022 136 kg (299 lb 12.8 oz) 03/29/2022 135.2 kg (298 lb) 03/11/2022 135.3 kg (298 lb 3.2 oz) 01/27/2022 135.2 kg (298 lb) PHYSICAL EXAMINATION: General appearance: Well appearing, alert, in no acute distress, well-hydrated, well nourished. Skin: Skin color, texture, turgor normal, no suspicious rashes or lesions Head: Normocephalic, no masses, lesions, tenderness or abnormalities Eyes: Anicteric sclera. Pupils are equally round and reactive to light. Extraocular movements are intact. Lungs: Lungs clear to auscultation. No wheezing, rhonchi, rales Heart: RRR without murmur, gallop, or rubs. No ectopy Abdomen: Normal abdominal exam, Abdomen soft, non-tender. Bowel sounds normal. No masses, organomegaly Extremities: No deformities, edema, skin discoloration, clubbing or cyanosis. Good capillary refill. ASSESSMENT/PLAN: 1. Chronic constipation - ICD9: 564.00, ICD10: K59.09 (primary diagnosis) -check labs. Add miralax. Call if symptoms worsen at all or if not better in one to two weeks - CBC + DIFF - COMP METABOLIC PANEL - TSH BLD - POLYETHYLENE GLYCOL 3350 17 GRAM/DOSE ORAL POWDER 2. Functional dyspepsia - ICD9: 536.8, ICD10: K30 - FAMOTIDINE 2 (more content not included)... [facility] 12-16-2022 History of Presen t illness Narrative Patient presents with: Follow Up HPI: Patient presents today for office visit for follow up with multiple concerns. Last seen in December 2020. Needs refill on her Epi pen. Severe bee allergy. Has seen Gastro previously. Hx of severe constipation and hemorrhoids. Taking Protonix and Pepcid for severe GERD. Symptoms controlled. If takes miralax it works. Discussed taking it daily. Colonoscopy and upper EGD done 12/30/21. Biopsy results from colonoscopy and EGD - unremarkable - The polyps in the sigmoid colon are benign and some change was seen in the esophagus from GERD. Call from 09/29/22 where she was having severe rectal bleeding due to hemorrhoid. Hadn't had BM in over a week. Has nausea with episodes. Denies vomiting. Since is having more frequent BM's but, not normal Taking miralax OTC and increased her water intake. Trying to work on diet but finds it hard due to expense of healthier food options. Only taking two to three times a wek. Would like to discuss weight management. No energy. Is a snorer. Worse with weight gain. MEDICATIONS: Current Outpatient Medications Medication Sig famotidine (PEPCID) 20 mg tablet TAKE 1 TABLET BY MOUTH EVERY DAY pantoprazole DR (PROTONIX) 40 mg tablet TAKE 1 TABLET BY MOUTH EVERY DAY EPINEPHrine (EPIPEN) 0.3 mg/0.3 mL auto-injector Use as directed clotrimazole-betamethasone (LOTRISONE) cream Apply to affected area twice daily. (Patient not taking: Reported on 05/27/2022) No current facility-administered medications for this visit. ALLERGIES: ALLERGIES Allergen Reactions Bees Anaphylaxis Environmental [Othe* Intolerance Vancomycin Other: See Comments Hot and itchy PAST MEDICAL HISTORY Diagnosis Date GERD (gastroesophageal reflux disease) LLL pneumonia 03/14/2019 Meningitis 2012 Tobacco use disorder PAST SURGICAL HISTORY Procedure Laterality Date CHOLECYSTECTOMY 11/25/2007 CHOLECYSTECTOMY HX COLONOSCOPY SCREENING 12/30/2021 repeat in 5 years EGD 12/30/2021 PAST SURGICAL HISTORY OF 02/2009 Essure procedure FAMILY HISTORY Problem Relation Age of Onset Colon Polyps Mother multiple polyps other (GI-non cancerous polyps and diverticulosis) Mother other (diverticulosis) Mother Liver Cancer Father other (other) Maternal Grandmother Colon Polyps Maternal Grandmother Heart Maternal Grandmother COPD Maternal Grandmother Heart Maternal Grandfather Heart Paternal Grandmother Breast Cancer Paternal Grandmother Heart Paternal Grandfather Breast Cancer Maternal Aunt Social History Tobacco Use Smoking status: Former Packs/day: 0.50 Years: 8.00 Total pack years: 4.00 Types: Cigarettes Quit date: 06/12/2017 Years since quittin.5 Smokeless tobacco: Never Vaping Use Vaping Use: Never used Substance Use Topics Alcohol use: No Drug use: No Reviewed current medications, allergies, past medical history, surgical history, family history and social history today. REVIEW OF SYSTEMS All other reviewed and negative other than HPI. HEALTH MAINTENANCE: Reviewed health maintenance issues today and recommended the following in detail. HEPATITIS B(1 of 3 - 3-dose series) wad done. COVID-19 VACCINE(1) Never done HEPATITIS C SCREENING Never done HIV SCREENING Never done DTAP,TDAP,TD(1 - Tdap) Never done DEPRESSION ASSESSMENT Never done LIPID SCREEN due on 2022 MAMMOGRAM due on 03/11/2023 VITALS: BP 100/74 Pulse 98 Ht 175.3 cm (5' 9 ) Wt 133.6 kg (294 lb 9.6 oz) LMP 01/13/2022 SpO2 97% BMI 43.50 kg/m Last 4 Encounter Wt Readings: Date: Wt: 05/27/2022 136 kg (299 lb 12.8 oz) 03/29/2022 135.2 kg (298 lb) 03/11/2022 135.3 kg (298 lb 3.2 oz) 01/27/2022 135.2 kg (298 lb) PHYSICAL EXAMINATION: General appearance: Well appearing, alert, in no acute distress, well-hydrated, well nourished. Skin: Skin color, texture, turgor normal, no suspicious rashes or lesions Head: Normocephalic, no masses, lesions, tenderness or abnormalities Eyes: Anicteric sclera. Pupils are equally round and reactive to light. Extraocular movements are intact. Lungs: Lungs clear to auscultation. No wheezing, rhonchi, rales Heart: RRR without murmur, gallop, or rubs. No ectopy Abdomen: Normal abdominal exam, Abdomen soft, non-tender. Bowel sounds normal. No masses, organomegaly Extremities: No deformities, edema, skin discoloration, clubbing or cyanosis. Good capillary refill. ASSESSMENT/PLAN: 1. Chronic constipation - ICD9: 564.00, ICD10: K59.09 (primary diagnosis) -check labs. Add miralax. Call if symptoms worsen at all or if not better in one to two weeks - CBC + DIFF - COMP METABOLIC PANEL - TSH BLD - POLYETHYLENE GLYCOL 3350 17 GRAM/DOSE ORAL POWDER 2. Functional dyspepsia - ICD9: 536.8, ICD10: K30 - FAMOTIDINE 20 MG TABLET - PANTOPRAZOLE 40 MG TABLET,DELAYED RELEASE 3. Bee sting allergy - ICD9: V15.06, ICD10: Z91.030 - EPINEPHRINE 0.3 MG/0.3 ML INJECTION, AUTO-INJECTOR 4. Screening for lipid disorders - ICD9: V77.91, ICD10: Z13.220 - LIPID PANEL BASIC 5. Fatigue, unspecified type - ICD9: 780.79, ICD10: R53.83 - check labs. Consider carmencita. 6. Screening for HIV (human immunodeficiency virus) - ICD9: V73.89, ICD10: Z11.4 - HIV 1 2 COMBO(AG/AB),WITH REFLEX TO DIFFERENTIATION 7. Need for hepatitis C screening test - ICD9: V73.89, ICD10: Z11.59 - HEPATITIS C ANTIBODY IA WITH CONFIRMATION Hui Alexander RTO in annually and prn. documented in this encounter [facility] 09-29-2022 Miscellaneous Notes Protocol recommends ER. Patient reports severe issues with large hemorroid in rectum has been bleeding for over a week. No BM for one week. Reports quite a bit of bright red blood and clots. Thinks hemorroid is inflammed and causing blockage in rectum. Patient agreeable to ER for evaluation, and states she will go to [place] [facility]. Reason for Disposition SEVERE rectal bleeding (large blood clots; constant or on and off bleeding) Answer Assessment - Initial Assessment Questions 1. APPEARANCE of BLOOD: Bright red blood coming from hemorroid in rectum. Hasn't had stool for 1 week. Passes separately and with stool. There are significant clots that pass. 2. AMOUNT: There has been quite a bit of blood. 3. FREQUENCY: Blood started passing a little over a week ago. 4. ONSET: A little over a week ago. 5. DIARRHEA: No diarrhea. 6. CONSTIPATION: No BM for a week. Tried prep H. Tried stool softner. Ate olive oil. 7. RECURRENT SYMPTOMS: Had trouble with hemorroids in the past, but not this bad. 8. BLOOD THINNERS: No 9. OTHER SYMPTOMS: Starting to feel sick to stomach. Urgency to go to bathroom but won't come b/c infammation in there. It is blocked. Feeling really sick today, slept all day. No dizziness. 10. : No Protocols used: Rectal [id number] documented in this encounter [facility] 05-27-2022 Influenza virus A and B RNA and SARS-CoV-2 (COVID-19) N gene panel JENNIFER+probe (Resp) COVID 19 RESULT: SARS-CoV-2 (Agent of COVID-19) Not Detected by RT-PCR or equivalent method. maria del carmen [id number]_L[employer]ply [employer] (SURAJ)_EUA This test was developed and its performance characteristics determined by [facility]'s [facility] [place]. This test has been authorized by FDA under an Emergency Use Authorization (EUA). This test has been validated in accordance with the FDA's Guidance Document Policy for Diagnostics Testing in Laboratories Certified to Perform High Complexity Testing under CLIA prior to Emergency use Authorization for Coronavirus Disease 2019 during the Public Health Emergency issued on August 04, 2019. Test performed by [facility], [facility] [place], [address] [place] [address]. INFLUENZA A PCR: Negative for Influenza A by RT-PCR INFLUENZA B PCR: Negative for Influenza B by RT-PCR [facility] Diagnosis Bloating Flatulence, eructation, and gas pain Early satiety [facility] Diagnosis Functional dyspepsia Dyspepsia and other specified disorders of function of stomach Epigastric burning sensation Abdominal pain, epigastric Nausea Nausea alone [facility] Diagnosis Encounter for screening mammogram for breast cancer [facility] Diagnosis Constipation, unspecified constipation type Family history of colonic polyps Bloating Flatulence, eructation, and gas pain Early satiety Dysphagia, unspecified type [facility] Diagnosis History of colonic polyps- Primary Personal history of colonic polyps Gastroesophageal reflux disease without esophagitis Esophageal reflux Constipation, unspecified constipation type [facility] Diagnosis Bloating Flatulence, eructation, and gas pain Early satiety [facility] Diagnosis Encounter for gynecological examination (general) (routine) without abnormal findings- Primary Encounter for screening mammogram for malignant neoplasm of breast Other screening mammogram Screening for cervical cancer Screening for malignant neoplasm of the cervix Encounter for screening for human papillomavirus (HPV) Special screening examination for human papillomavirus (HPV) [facility] Diagnosis Rash- Primary Rash and other nonspecific skin eruption documented in this encounter [facility] note* Diagnosis Encounter for screening mammogram for malignant neoplasm of breast Other screening mammogram documented in this encounter [facility] note* Diagnosis Sore throat- Primary Acute pharyngitis Missed period Irregular menstrual cycle documented in this encounter [facility] note* Diagnosis Influenza-like illness- Primary Influenza with other respiratory manifestations documented in this encounter [facility] note* Diagnosis Chronic constipation- Primary Unspecified constipation Functional dyspepsia Dyspepsia and other specified disorders of function of stomach Bee sting allergy Allergy to insects and arachnids Screening for lipid disorders Fatigue, unspecified type Screening for HIV (human immunodeficiency virus) Special screening examination for other specified viral diseases Need for hepatitis C screening test Special screening examination for other specified viral diseases documented in this encounter [facility] note* Diagnosis Anemia, unspecified type- Primary documented in this encounter [facility] note* Diagnosis CARMENCITA (obstructive sleep apnea)- Primary Obstructive sleep apnea (adult) (pediatric) documented in this encounter [facility] note* Diagnosis CARMENCITA (obstructive sleep apnea)- Primary Obstructive sleep apnea (adult) (pediatric) documented in this encounter [facility] note* Diagnosis CARMENCITA (obstructive sleep apnea)- Primary Obstructive sleep apnea (adult) (pediatric) documented in this encounter [facility] note* Diagnosis Encounter for screening mammogram for breast cancer documented in this encounter [facility] note* Diagnosis Sore throat- Primary Acute pharyngitis Right ear pain Otalgia, unspecified Jaw pain documented in this encounter [facility] for referral (narrative)* Outpatient Procedure (Routine) - Pending Review Specialty Diagnoses / Procedures Referred By Sosa ordaz Referred To Contact [facility] Diagnoses Bloating Early satiety Dysphagia, unspecified type Procedures EGD DIAGNOSTIC ESOPHAGOGASTRODUODENOSC OPY TRANSORAL DIAGNOSTIC Francesca Hurst APRN.CNP [address] [place] [address] [facility] [address] [place] [id number] Referral ID Status Reason Start Date Expiration Date Visits Requested Visits Authorized [id number] Pending Review Auto-Generat ed Referral 08/31/2021 08/31/2022 1 1 * Outpatient Procedure (Routine) - Pending Review Specialty Diagnoses / Procedures Referred By Conttita t Referred To Contact [facility] Diagnoses Constipation, unspecified constipation type Family history of colonic polyps Procedures COLONOSCOPY DIAGNOSTIC COLONOSCOPY FLX DX W/COLLJ SPEC WHEN PFRMD Francesca Hurst APRN.BUN ICER [address] [place] [address] [facility] [address] [place] [address] Referral ID Status Reason Start Date Expiration Date Visits Requested Visits Authorized [id number] Pending Review Auto-Generat ed Referral 08/31/2021 08/31/2022 1 1 [facility] for referral (narrative)* Diagnostic Procedure Only (Routine) - Pending Review Specialty Diagnoses / Procedures Referred By Sosa t Referred To Contact [facility] Diagnoses Encounter for screening mammogram for breast cancer Procedures RIRI SCREENING SCREENING MAMMOGRAPHY BI 2-VIEW BREAST INC CAD Catherine, Hui Villarreal MD [address] [place] [address] [facility] [address] [place] [address] Referral ID Status Reason Start Date Expiration Date Visits Requested Visits Authorized [id number] Pending Review Auto-Generat ed Referral 12/02/2021 01/01/2023 1 1 [facility] for referral (narrative)* Outpatient Procedure (Routine) - Closed Specialty Diagnoses / Procedures Referred By Conttita t Referred To Contact [facility] Diagnoses Bloating Early satiety Dysphagia, unspecified type Procedures EGD DIAGNOSTIC ESOPHAGOGASTRODUODENOSC OPY TRANSORAL DIAGNOSTIC Francesca Hurst APRN.CNP [address] [place] [address] [facility] [address] [place] [address] Referral ID Status Reason Start Date Expiration Date V isits Requested Visits Authorized [id number] Closed Auto-Generate d Referral 08/31/2021 08/31/2022 1 1 * Outpatient Procedure (Routine) - Closed Specialty Diagnoses / Procedures Referred By Sosa ordaz Referred To Contact [facility] Diagnoses Constipation, unspecified constipation type Family history of colonic polyps Procedures COLONOSCOPY DIAGNOSTIC COLONOSCOPY FLX DX W/COLLJ SPEC WHEN Francesca Graves APRN.CNP [address] [facility] [place] [address] [facility] [address] [place] [address] Referral ID Status Reason Start Date Expiration Date V isits Requested Visits Authorized [id number] Closed Auto-Generate d Referral 08/31/2021 08/31/2022 1 1 [facility] for referral (narrative)* Diagnostic Procedure Only (Routine) - Authorized Specialty Diagnoses / Procedures Referred By Sosa ordaz Referred To Contact [facility] Diagnoses Encounter for screening mammogram for malignant neoplasm of breast Procedures RIRI SCREENING W RUFUS SCREENING DIGITAL BREAST TOMOSYNTHESIS BI SCREENING MAMMOGRAPHY BI 2-VIEW BREAST INC CAD Keri Hatch MD [address] [place] [address] [facility] [address] [place] [address] Referral ID Status Reason Start Date Expiration Date Visits Requested Visits Authorized [id number] Authorized Auto-Generat ed Referral 01/27/2022 02/26/2023 1 1 [facility] for referral (narrative)* Diagnostic Procedure Only (Routine) - Closed Specialty Diagnoses / Procedures Referred By Sosa ordaz Referred To Contact [facility] Diagnoses Encounter for screening mammogram for malignant neoplasm of breast Procedures RIRI SCREENING W RUFUS SCREENING DIGITAL BREAST TOMOSYNTHESIS BI SCREENING MAMMOGRAPHY BI 2-VIEW BREAST INC CAD Keri Hatch MD [address] [place] [address] [facility] [address] [place] [phone] Referral ID Status Reason Start Date Expiration Date V isits Requested Visits Authorized [id number] Closed Auto-Generate d Referral 01/27/2022 02/26/2023 1 1 [facility] for referral (narrative)* Diagnostic Procedure Only (Routine) - Closed Specialty Diagnoses / Procedures Referred By Sosa ordaz Ref[facility] Diagnoses CARMENCITA (obstructive sleep apnea) Procedures HOME SLEEP APNEA TEST (HSAT) SLEEP STD AIRFLOW HRT RATE&O2 SAT EFFORT Hui Gonzalez MD [address] [place] [address] [address] Referral ID Status Reason Start Date Expiration Date V isits Requested Visits Authorized [id number] Closed Auto-Generate d Referral 12/17/2022 12/17/2023 1 1 [facility] for referral (narrative)* Diagnostic Procedure Only (Routine) - Pending Review Specialty Diagnoses / Procedures Referred By Sosa ordaz Referred To Contact [facility] Diagnoses Encounter for screening mammogram for breast cancer Procedures RIRI SCREENING W RUFUS SCREENING DIGITAL BREAST TOMOSYNTHESIS BI SCREENING MAMMOGRAPHY BI 2-VIEW BREAST INC CAD Hui Alexander MD [address] [place] [address] [facility] [address] [place] [phone] Referral ID Status Reason Start Date Expiration Date Visits Requested Visits Authorized [id number] Pending Review Auto-Generat ed Referral 3 05/19/2024 1 1 [facility] for visit Narrative* Outpatient Procedure (Routine) - Closed Specialty Diagnoses / Procedures Referred By Sosa ordaz Referred To Contact [facility] Diagnoses Bloating Early satiety Dysphagia, unspecified type Procedures EGD DIAGNOSTIC ESOPHAGOGASTRODUODENOSC OPY TRANSORAL DIAGNOSTIC Francesca Hurst APRN.BUN ICER [address] [place] [address] [facility] [address] [place] [address] Referral ID Status Reason Start Date Expiration Date V isits Requested Visits Authorized [id number] Closed Auto-Generate d Referral 08/31/2021 08/31/2022 1 1 [facility] Diagnostic Procedure Only (Routine) - Closed Specialty Diagnoses / Procedures Referred By Contac t Referred To Contact [facility] Diagnoses Encounter for screening mammogram for malignant neoplasm of breast Procedures RIRI SCREENING W RUFUS SCREENING DIGITAL BREAST TOMOSYNTHESIS BI SCREENING MAMMOGRAPHY BI 2-VIEW BREAST INC CAD Keri Hatch MD [address] [place] [address] [facility] [address] [place] [phone] Referral ID Status Reason Start Date Expiration Date V isits Requested Visits Authorized [id number] Closed Auto-Generate d Referral 01/27/2022 02/26/2023 1 1 [facility] Summary Purpose Family History No Family History Records FoundNo Family History Records FoundNo Family History Records FoundNo Family History Records Found Advance Directives No Advanced Directives Records FoundDocuments on File Type Date Recorded Patient Sr Account Executive Expl anation Advance Directive(s) 03/14/2019 7:12 PM Documents on File Type Date Recorded Patient Sr Account Executive Expl anation Advance Directive(s) 03/14/2019 7:12 PM Documents on File Type Date Recorded Patient Sr Account Executive Expl anation Advance Directive(s) 11/25/2021 10:49 AM Advance Directive(s) 03/14/2019 7:12 PM Documents on File Type Date Recorded Patient Sr Account Executive Expl anation Advance Directive(s) 11/25/2021 10:49 AM Advance Directive(s) 03/14/2019 7:12 PM Documents on File Type Date Recorded Patient Sr Account Executive Expl anation Advance Directive(s) 12/30/2021 7:50 AM Advance Directive(s) 11/25/2021 10:49 AM Advance Directive(s) 03/14/2019 7:12 PM Documents on File Type Date Recorded Patient Sr Account Executive Expl anation Advance Directive(s) 12/30/2021 7:50 AM Advance Directive(s) 11/25/2021 10:49 AM Advance Directive(s) 03/14/2019 7:12 PM Reason for Referral Specialty Diagnoses / Procedures Referred By Contac t Referred To Contact Diagnoses Functional dyspepsia Epigastric burning sensation Nausea Francesca Hurst, SENIOR [employer]UX UNIX ENGINEER.BUN ICER [address] [place] [address] Referral ID Status Reason Start Date Expiration Date V isits Requested Visits Authorized [id number] Pending Review 1 1 Specialty Diagnoses / Procedures Referred By Contac t Referred To Contact Diagnoses Bee sting allergy Hui Alexander MD [address] [place] [address] Referral ID Status Reason Start Date Expiration Date Visits Re quested Visits Authorized [id number] Closed 1 1 Specialty Diagnoses / Procedures Referred By Contac t Referred To Contact Diagnoses CARMENCITA (obstructive sleep apnea) Procedures CONSULT TO SLEEP MEDICINE - ADULT OFFICE/OUTPATIENT [facility] 60-74 MINUTES Hui Alexander MD [address] [place] [address] Referral ID Status Reason Start Date Expiration Date Visits Requested Visits Authorized [id number] Authorized PCP Requested Referral 01/18/2023 01/18/2024 1 1 Specialty Diagnoses / Procedures Referred By Contac t Referred To Contact [facility] - Otolaryngology Diagnoses Right ear pain Jaw pain Procedures CONSULT TO ENT OFFICE/OUTPATIENT [facility] 60-74 MINUTES Shari Sewell, SENIOR LINUX UNIX ENGINEER.BUN ICER [address] [place] [address] Referral ID Status Reason Start Date Expiration Date Visits Requested Visits Authorized [id number] Authorized PCP Requested Referral 3 05/19/2024 1 1 Medications Administered Section Inactive Administered Medications - up to 3 most recent administrations Medication Order MAR Action Action Date Dose Rate Site benzocaine 20% 1 [place] (TOPEX) 1 [place], TOPICAL, ONCE, 1 dose, On Tue12/30/21 at 0830, Orally per LIP prior to start of procedure - Pharmaceutical Waste: Aerosol -, Intraprocedure Given 12/30/2021 8:13 AM EDT 4 Sprays lactated ringers iv infusion 30 mL/hr, INTRAVENOUS, CONTINUOUS, Starting on Tue12/30/21 at 0730, Until Tue12/30/21 at 0845, Preprocedure Restarted 12/30/2021 8:06 AM EDT Inactive Administered Medications - up to 3 most recent administrations Medication Order MAR Action Action Date Dose Rate Site acetaminophen 1,000 mg tab(s) (TYLENOL) 1,000 mg, ORAL, ONCE, 1 dose, On [place] 05/27/22 at 1530, If ordered PRN for pain, patient/guardian may elect to receive this medication for higher pain levels INSTEAD of the opioid, if preferred: Yes Given 05/27/2022 4:02 PM EST 1,000 mg Additional Source Comments INFORMATION SOURCE (unrecogn ized section and content) DATE CREATED AUTHOR AUTHOR'S ORGANIZ ATION 03/16/2019 [facility] DATE CREATED AUTHOR AUTHOR'S ORGANIZ ATION 12/31/[address] [facility] DATE CREATED AUTHOR AUTHOR'S ORGANIZ ATION 05/22/2023 [facility] Source Comments (unrecognize d section and content) In the event this informatio n is protected by the Federal Confidentiality of Alcohol and Drug Abuse Patient Records regulations: The Federal rules restrict any use of the information to criminally investigate or prosecute any alcohol or drug abuse patient.[facility] the event this information is protected by the Federal Confidentiality of Alcohol and Drug Abuse Patient Records regulations: The Federal rules restrict any use of the information to criminally investigate or prosecute any alcohol or drug abuse patient.[facility] the event this information is protected by the Federal Confidentiality of Alcohol and Drug Abuse Patient Records regulations: The Federal rules restrict any use of the information to criminally investigate or prosecute any alcohol or drug abuse patient.[facility] the event this information is protected by the Federal Confidentiality of Alcohol and Drug Abuse Patient Records regulations: The Federal rules restrict any use of the information to criminally investigate or prosecute any alcohol or drug abuse patient.[facility] Hospital[facility] the event this information is protected by the Federal Confidentiality of Alcohol and Drug Abuse Patient Records regulations: The Federal rules restrict any use of the information to criminally investigate or prosecute any alcohol or drug abuse patient.[facility] the event this information is protected by the Federal Confidentiality of Alcohol and Drug Abuse Patient Records regulations: The Federal rules restrict any use of the information to criminally investigate or prosecute any alcohol or drug abuse patient.[facility] Hospital[facility] the event this information is protected by the Federal Confidentiality of Alcohol and Drug Abuse Patient Records regulations: The Federal rules restrict any use of the information to criminally investigate or prosecute any alcohol or drug abuse patient.[facility] Hospital[facility] the event this information is protected by the Federal Confidentiality of Alcohol and Drug Abuse Patient Records regulations: The Federal rules restrict any use of the information to criminally investigate or prosecute any alcohol or drug abuse patient.[facility] the event this information is protected by the Federal Confidentiality of Alcohol and Drug Abuse Patient Records regulations: The Federal rules restrict any use of the information to criminally investigate or prosecute any alcohol or drug abuse patient.[facility] Hospital[facility] the event this information is protected by the Federal Confidentiality of Alcohol and Drug Abuse Patient Records regulations: The Federal rules restrict any use of the information to criminally investigate or prosecute any alcohol or drug abuse patient.[facility] Hospital[facility] the event this information is protected by the Federal Confidentiality of Alcohol and Drug Abuse Patient Records regulations: The Federal rules restrict any use of the information to criminally investigate or prosecute any alcohol or drug abuse patient.[facility] Hospital[facility] the event this information is protected by the Federal Confidentiality of Alcohol and Drug Abuse Patient Records regulations: The Federal rules restrict any use of the information to criminally investigate or prosecute any alcohol or drug abuse patient.[facility] Hospital[facility] the event this information is protected by the Federal Confidentiality of Alcohol and Drug Abuse Patient Records regulations: The Federal rules restrict any use of the information to criminally investigate or prosecute any alcohol or drug abuse patient.[facility] Hospital[facility] the event this information is protected by the Federal Confidentiality of Alcohol and Drug Abuse Patient Records regulations: The Federal rules restrict any use of the information to criminally investigate or prosecute any alcohol or drug abuse patient.[facility] HospitalIn the event this information is protected by the Federal Confidentiality of Alcohol and Drug Abuse Patient Records regulations: The Federal rules restrict any use of the information to criminally investigate or prosecute any alcohol or drug abuse patient.[facility] Hospital[facility] the event this information is protected by the Federal Confidentiality of Alcohol and Drug Abuse Patient Records regulations: The Federal rules restrict any use of the information to criminally investigate or prosecute any alcohol or drug abuse patient.[facility] HospitalIn the event this information is protected by the Federal Confidentiality of Alcohol and Drug Abuse Patient Records regulations: The Federal rules restrict any use of the information to criminally investigate or prosecute any alcohol or drug abuse patient.[facility] HospitalIn the event this information is protected by the Federal Confidentiality of Alcohol and Drug Abuse Patient Records regulations: The Federal rules restrict any use of the information to criminally investigate or prosecute any alcohol or drug abuse patient.[facility] HospitalIn the event this information is protected by the Federal Confidentiality of Alcohol and Drug Abuse Patient Records regulations: The Federal rules restrict any use of the information to criminally investigate or prosecute any alcohol or drug abuse patient.[facility] HospitalIn the event this information is protected by the Federal Confidentiality of Alcohol and Drug Abuse Patient Records regulations: The Federal rules restrict any use of the information to criminally investigate or prosecute any alcohol or drug abuse patient.[facility] HospitalIn the event this information is protected by the Federal Confidentiality of Alcohol and Drug Abuse Patient Records regulations: The Federal rules restrict any use of the information to criminally investigate or prosecute any alcohol or drug abuse patient.[facility] HospitalIn the event this information is protected by the Federal Confidentiality of Alcohol and Drug Abuse Patient Records regulations: The Federal rules restrict any use of the information to criminally investigate or prosecute any alcohol or drug abuse patient.[facility] HospitalIn the event this information is protected by the Federal Confidentiality of Alcohol and Drug Abuse Patient Records regulations: The Federal rules restrict any use of the information to criminally investigate or prosecute any alcohol or drug abuse patient.[facility] HospitalIn the event this information is protected by the Federal Confidentiality of Alcohol and Drug Abuse Patient Records regulations: The Federal rules restrict any use of the information to criminally investigate or prosecute any alcohol or drug abuse patient.[facility] HospitalIn the event this information is protected by the Federal Confidentiality of Alcohol and Drug Abuse Patient Records regulations: The Federal rules restrict any use of the information to criminally investigate or prosecute any alcohol or drug abuse patient.[facility] HospitalIn the event this information is protected by the Federal Confidentiality of Alcohol and Drug Abuse Patient Records regulations: The Federal rules restrict any use of the information to criminally investigate or prosecute any alcohol or drug abuse patient.[facility] HospitalIn the event this information is protected by the Federal Confidentiality of Alcohol and Drug Abuse Patient Records regulations: The Federal rules restrict any use of the information to criminally investigate or prosecute any alcohol or drug abuse patient.[facility] HospitalIn the event this information is protected by the Federal Confidentiality of Alcohol and Drug Abuse Patient Records regulations: The Federal rules restrict any use of the information to criminally investigate or prosecute any alcohol or drug abuse patient.[facility] HospitalIn the event this information is protected by the Federal Confidentiality of Alcohol and Drug Abuse Patient Records regulations: The Federal rules restrict any use of the information to criminally investigate or prosecute any alcohol or drug abuse patient.[facility] HospitalIn the event this information is protected by the Federal Confidentiality of Alcohol and Drug Abuse Patient Records regulations: The Federal rules restrict any use of the information to criminally investigate or prosecute any alcohol or drug abuse patient.[facility] HospitalIn the event this information is protected by the Federal Confidentiality of Alcohol and Drug Abuse Patient Records regulations: The Federal rules restrict any use of the information to criminally investigate or prosecute any alcohol or drug abuse patient.[facility] Reason for Visit (unrecogniz ed section and content) Reason Comments Refill Request Reason Comments Refill Request Reason Comments Results Reason Comments Constipation Reason Comments Yearly Exam Reason Comments Rash Pt reported rash loc ated (LT) breast upper/lower x2 days. Reason Comments Sore Throat Sore throat, cough, x 1 week, Reason Comments Cough Cough, fever, ANNE and bodyaches x 1 day Reason Comments Rectal Problem Reason Comments Follow Up Reason Comments Patient Update Reason Comments Results Reason Comments OV note for CPAP Reason Comments Appointment Rescheduled Reason Comments Titration study needed Reason Comments Sore Throat R ear and jaw pain x 3 days Care Teams (unrecognized sec tion and content) Network Support Technician Relationship Specialty Start Date End Date Hui Alexander MD [address] [place] [address] PCP - General Family Practice 04/28/18 Network Support Technician Relationship Specialty Start Date End Date Hui Alexander MD [address] [facility] [place] [address] PCP - General Family Practice 04/28/18 Network Support Technician Relationship Specialty Start Date End Date Hui Alexander MD [address] [facility] [place] [address] PCP - General Family Practice 04/28/18 Network Support Technician Relationship Specialty Start Date End Date Hui Alexander MD [address] [facility] [place] [address] PCP - General Family Practice 04/28/18 Network Support Technician Relationship Specialty Start Date End Date Hui Alexander MD [address] [facility] [place] [address] PCP - General Family Practice 04/28/18 Network Support Technician Relationship Specialty Start Date End Date Hui Alexander MD [address] [facility] [place] [address] PCP - General Family Practice 04/28/18 Network Support Technician Relationship Specialty Start Date End Date Hui Alexander MD [address] [facility] [place] [address] PCP - General Family Practice 04/28/18 Network Support Technician Relationship Specialty Start Date End Date Hui Alexander MD [address] [facility] [place] [address] PCP - General Family Practice 04/28/18 Network Support Technician Relationship Specialty Start Date End Date Hui Alexander MD [address] [facility] [place] [address] PCP - General Family Practice 04/28/18 Network Support Technician Relationship Specialty Start Date End Date Hui Alexander MD [address] [facility] [place] [address] PCP - General Family Practice 04/28/18 Network Support Technician Relationship Specialty Start Date End Date Hui Alexander MD [address] [facility] [place] [address] PCP - General Family Practice 04/28/18 Network Support Technician Relationship Specialty Start Date End Date Hui Alexander MD [address] [facility] [place] [address] PCP - General Family Medicine 04/28/18 Network Support Technician Relationship Specialty Start Date End Date Hui Alexander MD [address] [facility] [place] [address] PCP - General Family Medicine 04/28/18 Network Support Technician Relationship Specialty Start Date End Date Hui Alexander MD [address] [facility] [place] [address] PCP - General Family Medicine 04/28/18 Network Support Technician Relationship Specialty Start Date End Date Hui Alexander MD [address] [facility] [place] [address] PCP - General Family Medicine 04/28/18 Network Support Technician Relationship Specialty Start Date End Date Hui Alexander MD [address] [facility] [place] [address] PCP - General Family Medicine 04/28/18 Network Support Technician Relationship Specialty Start Date End Date Hui Alexander MD [address] [facility] [place] [address] PCP - General Family Medicine 04/28/18 Network Support Technician Relationship Specialty Start Date End Date Hui Alexander MD [address] [facility] [place] [address] PCP - General Family Medicine 04/28/18 Network Support Technician Relationship Specialty Start Date End Date Hui Alexander MD [address] [place] [address] PCP - General Family Medicine 04/28/18 Network Support Technician Relationship Specialty Start Date End Date Hui Alexander MD [address] [place] [address] PCP - General Family Medicine 04/28/18 Network Support Technician Relationship Specialty Start Date End Date Hui Alexander MD [address] [place] [address] PCP - General Family Medicine 04/28/18 Network Support Technician Relationship Specialty Start Date End Date Hui Alexander MD [address] [place] [address] PCP - General Family Medicine 04/28/18 Network Support Technician Relationship Specialty Start Date End Date Hui Alexander MD [address] [place] [address] PCP - General Family Medicine 04/28/18 Network Support Technician Relationship Specialty Start Date End Date Hui Alexander MD [address] [place] [address] PCP - General Family Medicine 04/28/18 Network Support Technician Relationship Specialty Start Date End Date Hui Alexander MD [address] [place] [address] PCP - General Family Medicine 04/28/18 Network Support Technician Relationship Specialty Start Date End Date Hui Alexander MD [address] [place] [address] PCP - General Family Medicine 04/28/18 Network Support Technician Relationship Specialty Start Date End Date Hui Alexander MD [address] [place] [address] PCP - General Family Medicine 04/28/18 Network Support Technician Relationship Specialty Start Date End Date Hui Alexander MD [address] [place] [address] PCP - General Family Medicine 04/28/18 FOR RECORDS PERTAINING TO PATIENTS WHO ARE OR HAVE BEEN ENROLLED IN A CHEMICAL DEPENDENCY/SUBSTANCEABUSE PROGRAM, SOME INFORMATION MAY BE OMITTED. This clinical summary was aggregated from multiple sources. Caution should be exercised in using it in the provision of clinical care. This summary normalizes information from multiple sources, and as a consequence, information in this document may materially change the coding, format and clinical context of patient data. In addition, data may be omitted in some cases. CLINICAL DECISIONS SHOULD BE BASED ON THE PRIMARY CLINICAL RECORDS. [facility] [employer] provides no warranty or guarantee of the accuracy or completeness of information in this document.
[2023-07-11 15:31] LABS: Squamous Epithelial Cells - UA 10-25 SEEN /hpf (5-10)
[2023-07-11 15:32] LABS: Bacteria 3+ /hpf (None Seen); Red Blood Cells-Urine 0-5 SEEN /hpf (0-5); White Blood Cells 10-25 SEEN /hpf (0-5)
[2023-07-11] MEDS: 0.9% Normal Saline (1000mL) 1,000 ML 1000 ML IV (15:32)
[2023-07-11] MEDS: Magnesium Citrate 300 ML PO (17:35)
[2023-07-11 17:39] VITALS: BP 138/98; PULSE 76; RESP 14; O2SAT 99
== END 2023-07-11 17:39 | disposition home or self-care (01) ==
PROVIDERS: Emergency Provider Emergency Medicine; PCP Family Medicine; Visit Provider Emergency Medicine
DX: R10.9 Unspecified abdominal pain (principal); K59.00 Constipation, unspecified; F17.210 Nicotine dependence, cigarettes, uncomplicated; R11.0 Nausea; K21.9 Gastro-esophageal reflux disease without esophagitis; Z79.899 Other long term (current) drug therapy
CPT/HCPCS: 74177; 80053; 81001; 84703; 85025; 87086; 96360; 96361; 99283; J7030; Q9967; A4216

== ENCOUNTER 2024-11-16 11:02 | Day surgery (SDC) | payer MEDICAID, SELFPAY ==
[2024-11-16] VITALS (9 sets, daily range): BP systolic 109–129; BP diastolic 65–79; PULSE 73–100; RESP 16; TEMP 36.1–36.4; O2SAT 94–98; BMI 42.3
[2024-11-16 11:27] LABS: Internal QC Validated? YES +Cl - CLEAR BKGD; Pregnancy, Urine Negative Negative
[2024-11-16] MEDS: Lactated Ringers 1,000 ML 15 ML IV (11:36)
[2024-11-16 13:01] LABS: Hematocrit 32.7 % (37-47); Hemoglobin 10.2 g/dL (12.0-15.0); Mean Corp Hgb Conc 31.2 g/dL (32-36); Mean Corpuscular Hgb 25.2 pg (27.0-32.0); Mean Corpuscular Volume 80.9 fL (81-99); Mean Platelet Vol. 9.5 fl (6.2-12.0); Platelet Count 303 K/mm3 (150-450); RBC Distribution Width CV 14.4 % (11.6-14.6); RBC Distribution Width SD 42.1 fl (35.1-43.9); Red Blood Count 4.04 M/mm3 (4.2-5.4); White Blood Count 8.1 K/mm3 (4.4-11.0)
[2024-11-16] MEDS: HYDROcodone Bitartrate/Apap 5/325 Tablet PO (14:06)
== END 2024-11-16 14:40 | disposition home or self-care (01) ==
LOC: SDC 11:04 → AC 11:05
PROVIDERS: PCP Family Medicine; Referring Provider Obstetrics & Gynecology; Visit Provider Obstetrics & Gynecology
PROC: 0UDB8ZZ Extraction of Endometrium, Via Natural or Artificial Opening Endoscopic (ICD-10-PCS; CPT 58558; principal; 2024-11-16 12:30)
DX: N72 Inflammatory disease of cervix uteri (principal); N87.9 Dysplasia of cervix uteri, unspecified; N93.9 Abnormal uterine and vaginal bleeding, unspecified; G47.30 Sleep apnea, unspecified; K21.9 Gastro-esophageal reflux disease without esophagitis; Z79.899 Other long term (current) drug therapy; Z87.891 Personal history of nicotine dependence
CPT/HCPCS: 58558; 00952; 36415; 81025; 85027; 88305; J2405